=== PATIENT | male | born 1975 | race Caucasian/White ===

== ENCOUNTER → 2022-03-30 | Emergency (ER) | payer SELFPAY ==
[~2022-03-30] VITALS: Ht 172.7 cm; Wt 95.3 kg
[~2022-03-30] MED LIST: IBUP-1955 PO; KETOROLAC TROMETHAMINE INJ 30 MG/ML VIAL ONE
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
[2022-03-30] MEDS: KETOROLAC TROMETHAMINE INJ 60 MG/2 ML VIAL IM ONE (20:06)
--- NOTE | 2022-03-30 20:07 | NUR ---
Patient discharged to home in stable condition. Written and verbal after care instructions given. Patient verbalizes understanding of instruction.
[2022-03-31 01:22] VITALS: BP 133/49
== END | disposition home or self-care (01) ==
LOC: ER 18:25
DX: S16.1XXA Strain of muscle, fascia and tendon at neck level, initial encounter (principal); I10 Essential (primary) hypertension; Z79.1 Long term (current) use of non-steroidal anti-inflammatories (NSAID); V43.92XA Unspecified car occupant injured in collision with other type car in traffic accident, initial encounter; Y93.89 Activity, other specified; Y92.89 Other specified places as the place of occurrence of the external cause; Y99.8 Other external cause status
CPT/HCPCS: 99284; 72125; 96372; 70450; J1885